=== PATIENT | male | born 2000 | race Caucasian/White ===

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

== ENCOUNTER → 2019-02-01 | Outpatient (REF) | payer OTHER ==
[~2019-02-01] MED LIST changes: +CEFU50TA PO
[2019-02-01 13:39] LABS: BASO % 0.3 % (0.0-1.0); EOS # 0.1 10^3/uL (0.0-0.50); HEMATOCRIT 44.9 % (42.0-52.0); HEMOGLOBIN 15.4 g/dl (13.5-17.5); LYMPH # 1.7 10^3/uL (1.5-6.5); LYMPH % 16.5 % (24.0-44.0); MEAN CORPUSCULAR HEMOGLOBIN 27.6 pg (27.0-33.0); MEAN CORPUSCULAR HGB CONC 34.3 g/dl (32.0-36.5); MEAN CORPUSCULAR VOLUME 80.5 fl (80.0-96.0); MONO # 0.3 10^3/uL (0.0-0.8); MONO % 3.3 % (0.0-5.0); NEUTROPHILS # 7.8 10^3/uL (1.8-7.7); NEUTROPHILS % 78.2 % (36.0-66.0); PLATELET COUNT, AUTOMATED 133 10^3/uL (150-450); RED BLOOD COUNT 5.58 10^6/uL (4.30-6.10)
== END ==
LOC: M LABDRAW1 11:43
PROVIDERS: ATTEND Family Medicine
DX: T17.908A Unspecified foreign body in respiratory tract, part unspecified causing other injury, initial encounter (principal)

== ENCOUNTER → 2019-02-19 | Outpatient (CLI) | payer OTHER | LOC: M LAB 13:55 | PROVIDERS: ATTEND Family Medicine | DX: M13.0 Polyarthritis, unspecified (principal) ==

== ENCOUNTER 2019-02-27 12:13 | Outpatient (RCR) | payer OTHER ==
--- NOTE | 2019-02-27 14:55 | NUR ---
Pt reports that after eating a few bites that he feels full and pain begins in the upper abdomen. Pt denies pain in the pharyngeal area before/during or after swallow but rather in the abdominal area. Pt admits to GERD but does not always take his omeprazole d/t neuro meds as advised by his doctor. Hx sig for: TAR Syndrome Asthma (as reported by Pt) Depression Chronic thrombocytopenia Scoliosis Vitamin D deficiency Delayed cough with puree soft sandwich, mixed consistency and thin liquid. However, there was no penetration or aspiration. There was no residue within the oral cavity or pharynx. D/T slight breath holds during normal swallow, particularly with consecutive drinks. It may be likely that cough is a result of asthma with extended or repeated breath holds. Avoid consecutive drinks. Avoid large bites of food that require consecutive swallows. Recommend: continue diet as tolerated Addendum: 02/27/19 at 1456 by SHANT ALLISON [facility] Amended: Links added.
--- NOTE | 2019-02-28 10:01 | REP ---
Cookie Swallow This procedure is performed by MARGARITO High, under the direct supervision of Dr. Sol. The procedure was performed with a Lyn Hansen from speech pathology present. 5 ml aliquots of thin, pudding, mixed fruit, sandwich, and cookies was administered with barium. No abnormalities for aspiration was appreciated during the exam. The detailed report of this examination will be provided by speech pathology. 2.0 minutes of fluoroscopy time was utilized for this procedure. Reviewed by MARGARITO Dawkins 02/27/2019 02:58 P Electronically Signed by Tanner Sol MD 02/28/2019 09:52 A
== END 2019-03-06 ==
LOC: M ST 12:13
PROVIDERS: ATTEND Family Medicine
DX: T17.908D Unspecified foreign body in respiratory tract, part unspecified causing other injury, subsequent encounter (principal)

== ENCOUNTER → 2019-03-08 | Outpatient (CLI) | payer OTHER ==
--- NOTE | 2019-03-09 03:53 | REP ---
Clinical: Acute flank pain. Technique: Real time ramirez scale and color evaluation using curved array transducer. Findings: Bilateral kidneys are normal in contour, size, echogenicity and reniform shape. No hydronephrosis, nephrolithiasis, cystic or renal mass lesion. Right kidney measures 8.8 x 4.5 x 3.6 cm. Left kidney measures 9.7 x 4.1 x 4.7 cm. Bladder is unremarkable although under distended and currently measures 5.7 x 5.3 x 1.8 cm. Prostate is normal in appearance and measures 2.5 x 3.0 x 2.7 cm (10.6 ml). Impression: Normal renal ultrasound. Electronically Signed by Thang Perales MD 03/09/2019 03:44 A
== END ==
LOC: M RAD 15:33
PROVIDERS: ATTEND Family Medicine
DX: R10.9 Unspecified abdominal pain (principal)

== ENCOUNTER → 2019-03-08 | Outpatient (CLI) | payer OTHER ==
[2019-03-08 17:36] LABS: BLOOD UREA NITROGEN 13 MG/DL (7-18); CALCIUM LEVEL 9.4 MG/DL (8.5-10.1); CARBON DIOXIDE LEVEL 25 MEQ/L (21-32); CHLORIDE LEVEL 109 MEQ/L (98-107); CREATININE FOR GFR 0.98 MG/DL (0.70-1.30); GLUCOSE, FASTING 87 MG/DL (70-100); POTASSIUM SERUM 4.4 MEQ/L (3.5-5.1); SODIUM LEVEL 139 MEQ/L (136-145)
== END ==
LOC: M LAB 15:58
PROVIDERS: ATTEND Family Medicine
DX: R10.9 Unspecified abdominal pain (principal)

== ENCOUNTER 2019-03-15 11:36 | Emergency (ER) | payer OTHER ==
[~2019-03-15] VITALS: Ht 154.9 cm; Wt 45.5 kg
[2019-03-15] MEDS ORDERED: CEFD1CAP8 (11:42)
[2019-03-15] MEDS ORDERED: ZYRTTAB8 PO (12:51)
[2019-03-15 12:52] VITALS: BP 95/57
[2019-03-15] MEDS ORDERED: ACETAMINOPHEN 325 MG TAB PO ONE (13:00)
== END 2019-03-15 12:57 | disposition home or self-care (01) ==
LOC: M ED 11:36
DX: H65.02 Acute serous otitis media, left ear (principal); J30.89 Other allergic rhinitis; K21.9 Gastro-esophageal reflux disease without esophagitis; Z88.0 Allergy status to penicillin

== ENCOUNTER → 2019-04-25 | Outpatient (CLI) | payer OTHER ==
[~2019-04-25] MED LIST changes: +CEFD1CAP8; +ZYRTTAB8 PO
--- NOTE | 2019-04-26 13:12 | REP ---
RIGHT UPPER QUADRANT SONOGRAPHY: HISTORY: Epigastric pain. COMPARISON: CT study November 18, 2018. TECHNIQUE: The study was performed as a the right upper quadrant sonography as ordered. However, additional history provided requested evaluation of spleen and rule out ascites. We attempted to recall the patient to accomplish this; and he returned on April 26 2019 for left abdominal scanning. SONOGRAPHIC FINDINGS: Scanning through the right upper quadrant demonstrates a normal sized thin-walled gallbladder without evidence of stone or polyp. Common bile duct is normal measuring 0.3 cm in greatest diameter. No focal liver lesion is seen. The liver is not felt to be enlarged. No pancreatic abnormality is seen. There is no evidence of ascites in the right upper quadrant. No right renal abnormality is noted. The right kidney measures 8.4 x 4.7 x 3.1 cm. Left upper quadrant scanning demonstrates normal sized homogeneous spleen with greatest diameter 9.7 cm. Left kidney is unremarkable as well measuring 9.44 0.5 x 4.6 cm. No ascites seen on the left or in the lower quadrants. IMPRESSION: Negative right upper quadrant sonogram. Negative left upper quadrant and a ascites survey sonography. Electronically Signed by Scott Jacome MD 04/26/2019 02:21 P
== END ==
LOC: M RAD 09:24
PROVIDERS: ATTEND Internal Medicine Gastroenterology
DX: R10.13 Epigastric pain (principal); R10.11 Right upper quadrant pain; F10.10 Alcohol abuse, uncomplicated

== ENCOUNTER → 2019-05-09 | Outpatient (CLI) | payer OTHER ==
[~2019-05-09] MED LIST changes: -DULO1CAP; +DULO1CAP4
[2019-05-09 13:34] LABS: BASO % 0.5 % (0.0-1.0); EOS # 0.1 10^3/uL (0.0-0.50); EOS % 1.1 % (0.0-3.0); HEMATOCRIT 47.7 % (42.0-52.0); HEMOGLOBIN 16.5 g/dl (13.5-17.5); LYMPH # 1.9 10^3/uL (1.5-6.5); LYMPH % 21.6 % (24.0-44.0); MEAN CORPUSCULAR HEMOGLOBIN 27.9 pg (27.0-33.0); MEAN CORPUSCULAR HGB CONC 34.6 g/dl (32.0-36.5); MEAN CORPUSCULAR VOLUME 80.6 fl (80.0-96.0); MONO # 0.3 10^3/uL (0.0-0.8); MONO % 2.8 % (0.0-5.0); NEUTROPHILS # 6.5 10^3/uL (1.8-7.7); NEUTROPHILS % 73.4 % (36.0-66.0); PLATELET COUNT, AUTOMATED 127 10^3/uL (150-450); RED BLOOD COUNT 5.92 10^6/uL (4.30-6.10); WHITE BLOOD COUNT 8.8 10^3/uL (4.0-10.0)
[2019-05-09 14:08] LABS: ALBUMIN 4.7 GM/DL (3.2-5.2); BILIRUBIN,DIRECT 0.2 MG/DL (0.0-0.2); BILIRUBIN,TOTAL 0.7 MG/DL (0.2-1.0); TOTAL PROTEIN 7.8 GM/DL (6.4-8.2)
[2019-05-12 00:08] LABS: IGASUB2 92.8 mg/dL (73.2-301.2); IgA SERUM (part of Subclasses) 126 mg/dL (90-386); TISSUE TRANSGLUTAMINASE IgA <2 U/mL (0-3); UNITSIGA FOR GLIADIN IGA 2 units (0-19); UNITSIGG FOR GLIADIN IGG 2 units (0-19)
== END ==
LOC: M LAB 12:29
PROVIDERS: ATTEND Internal Medicine Gastroenterology
DX: R10.13 Epigastric pain (principal)

== ENCOUNTER 2019-05-16 12:39 | Emergency (ER) | payer OTHER ==
[~2019-05-16] VITALS: Ht 154.9 cm; Wt 43.2 kg
[2019-05-16 14:27] LABS: BASO % 0.3 % (0.0-1.0); EOS % 0.4 % (0.0-3.0); HEMATOCRIT 44.2 % (42.0-52.0); HEMOGLOBIN 15.3 g/dl (13.5-17.5); LYMPH % 11.5 % (24.0-44.0); MEAN CORPUSCULAR HEMOGLOBIN 27.9 pg (27.0-33.0); MEAN CORPUSCULAR HGB CONC 34.6 g/dl (32.0-36.5); MEAN CORPUSCULAR VOLUME 80.7 fl (80.0-96.0); MONO # 0.5 10^3/uL (0.0-0.8); MONO % 5.3 % (0.0-5.0); NEUTROPHILS # 7.3 10^3/uL (1.8-7.7); NEUTROPHILS % 81.9 % (36.0-66.0); RED BLOOD COUNT 5.48 10^6/uL (4.30-6.10); WHITE BLOOD COUNT 8.9 10^3/uL (4.0-10.0)
[2019-05-16 14:28] LABS: PLATELET COUNT, AUTOMATED 90 10^3/uL (150-450)
--- NOTE | 2019-05-16 14:29 | REP ---
CHEST: Two views. There is no evidence of acute infiltrate. No pleural effusion is seen. The heart is normal in size. The mediastinal silhouette is unremarkable. The visualized osseous structures are intact. IMPRESSION: No acute pulmonary disease. Electronically Signed by Tanner Sol MD 05/18/2019 12:34 P
[2019-05-16 14:50] LABS: ALBUMIN 4.6 GM/DL (3.2-5.2); ALT/SGPT 14 U/L (12-78); BILIRUBIN,DIRECT 0.3 MG/DL (0.0-0.2); BILIRUBIN,TOTAL 1.4 MG/DL (0.2-1.0); BLOOD UREA NITROGEN 16 MG/DL (7-18); CALCIUM LEVEL 9.1 MG/DL (8.5-10.1); CARBON DIOXIDE LEVEL 25 MEQ/L (21-32); CHLORIDE LEVEL 108 MEQ/L (98-107); CREATININE FOR GFR 1.12 MG/DL (0.70-1.30); GLUCOSE, FASTING 85 MG/DL (70-100); LIPASE 43 U/L (73-393); SODIUM LEVEL 139 MEQ/L (136-145)
[2019-05-16 17:06] LABS: INFLUENZA A AMPLIFICATION NEGATIVE (NEGATIVE); INFLUENZA B AMPLIFICATION NEGATIVE (NEGATIVE)
[2019-05-16] MEDS ORDERED: ACETAMINOPHEN TAB 650MG DOSE (2X325MG) PO ONE (17:30)
--- NOTE | 2019-05-16 18:26 | REPVR ---
EXAM: US Abdomen Limited, Right Upper Quadrant EXAM DATE/TIME: 05/16/2019 5:31 PM CLINICAL HISTORY: 18 years old, male; Abdominal pain; Acute; Additional info: Ruq ttp, elevated bili levels, pls view liver/gb TECHNIQUE: Imaging protocol: Real-time ultrasound of the abdomen with image documentation. Examination was focused on the right upper quadrant. COMPARISON: RENAL US 03/08/2019 3:45 PM FINDINGS: Pancreas is only partially visualized due to bowel shadowing. No overt abnormailty. Liver is homogeneous in echotexture, with no focal lesion. Gallbladder is anechoic. No stone, mural edema or pericholecystic fluid. Common bile duct measures 1.2 mm in diameter. Right kidney measures 9.1 cm in long axis. Right kidney appears normal. No free fluid. IMPRESSION: Unremarkable sonogram of the right upper quadrant. Electronically signed by: Mane Dimas On 05/16/2019 18:25:59 PM
[2019-05-16 19:11] VITALS: BP 113/68
[2019-05-16 19:11] LABS: MONO REFLEX EBV COMP NEGATIVE (NEGATIVE)
--- NOTE | 2019-05-17 07:39 | ECGEPIP ---
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
[2019-05-19 00:06] LABS: EBV AB TO NUCLEAR ANTIGEN <18.0 U/mL (0.0-17.9); EBV VIRAL CAPSID AG IgG >600.0 U/mL (0.0-17.9); EBV VIRAL CAPSID AG IgM <36.0 U/mL (0.0-35.9)
== END 2019-05-16 19:18 | disposition home or self-care (01) ==
LOC: M ED 12:39
DX: D69.6 Thrombocytopenia, unspecified (principal); B34.9 Viral infection, unspecified; R00.0 Tachycardia, unspecified; R53.81 Other malaise; R53.83 Other fatigue; K21.9 Gastro-esophageal reflux disease without esophagitis; F41.9 Anxiety disorder, unspecified; F32.9 Major depressive disorder, single episode, unspecified; Q87.2 Congenital malformation syndromes predominantly involving limbs; Z88.0 Allergy status to penicillin; Z79.899 Other long term (current) drug therapy

== ENCOUNTER 2019-05-24 09:38 | Emergency (ER) | payer OTHER ==
[~2019-05-24] VITALS: Ht 154.9 cm; Wt 40.0 kg
[2019-05-24] MEDS ORDERED: ALBU83IN (09:46)
[2019-05-24] MEDS ORDERED: FLUT1INH2 (09:46)
[2019-05-24] MEDS ORDERED: CEFU1TAB22 (09:46)
[2019-05-24] MEDS ORDERED: BENZ200C70 (09:46)
[2019-05-24] MEDS ORDERED: PRED20TA (09:46)
[2019-05-24] MEDS ORDERED: ONDANSETRON 4MG/2ML VIAL (J2405) IV ONE (10:30)
[2019-05-24] MEDS ORDERED: KETOROLAC 30 MG/ML VIAL (J1885) IV ONE (10:30)
[2019-05-24] MEDS ORDERED: NS 500 ML IV ONE (10:30)
[2019-05-24] MEDS: GASTROGRAFIN SOLUTION 30ML PO SCH ×2 (11:28→11:30)
--- NOTE | 2019-05-24 11:31 | REP ---
CHEST, TWO VIEWS: There is no evidence of acute infiltrate. No pleural effusion is seen. The heart is normal in size. The mediastinal silhouette is unremarkable. The visualized osseous structures are intact. IMPRESSION: No acute pulmonary disease. Electronically Signed by Tanner Sol MD 05/27/2019 07:07 P
[2019-05-24 12:37] LABS: BASO # 0.1 10^3/uL (0.0-0.2); BASO % 0.6 % (0.0-1.0); EOS # 0.1 10^3/uL (0.0-0.50); EOS % 1.1 % (0.0-3.0); HEMATOCRIT 44.3 % (42.0-52.0); HEMOGLOBIN 15.5 g/dl (13.5-17.5); LYMPH # 2.3 10^3/uL (1.5-6.5); LYMPH % 26.1 % (24.0-44.0); MEAN CORPUSCULAR HEMOGLOBIN 27.7 pg (27.0-33.0); MEAN CORPUSCULAR VOLUME 79.2 fl (80.0-96.0); MONO # 0.5 10^3/uL (0.0-0.8); NEUTROPHILS # 5.7 10^3/uL (1.8-7.7); NEUTROPHILS % 64.2 % (36.0-66.0); PLATELET COUNT, AUTOMATED 131 10^3/uL (150-450); RED BLOOD COUNT 5.59 10^6/uL (4.30-6.10); WHITE BLOOD COUNT 8.9 10^3/uL (4.0-10.0)
[2019-05-24 13:05] LABS: ALBUMIN 4.5 GM/DL (3.2-5.2); ALT/SGPT 28 U/L (12-78); BILIRUBIN,DIRECT 0.2 MG/DL (0.0-0.2); BILIRUBIN,TOTAL 0.7 MG/DL (0.2-1.0); BLOOD UREA NITROGEN 12 MG/DL (7-18); CARBON DIOXIDE LEVEL 24 MEQ/L (21-32); CHLORIDE LEVEL 111 MEQ/L (98-107); CREATININE FOR GFR 1.04 MG/DL (0.70-1.30); GLUCOSE, FASTING 86 MG/DL (70-100); LIPASE 68 U/L (73-393); POTASSIUM SERUM 3.5 MEQ/L (3.5-5.1); SODIUM LEVEL 143 MEQ/L (136-145); TOTAL PROTEIN 7.4 GM/DL (6.4-8.2)
[2019-05-24] MEDS ORDERED: ISOVUE-370 76% 100ML VIAL (Q9967) As Ordered ONE (13:20)
--- NOTE | 2019-05-24 14:22 | REP ---
CT ABDOMEN AND PELVIS WITHOUT IV AND WITH ORAL CONTRAST: Axial CT abdomen and pelvis performed following administration of oral contrast. IV contrast was attempted to be administered but the patient only received a small amount of IV contrast and the IV failed. Re-injection was not attempted. Only a very small amount of intravenous contrast is administered with enhancement of both kidneys and excretion of contrast into both ureters. Sagittal and coronal reconstruction images are performed. Visualized lung bases are clear. Liver, spleen, adrenals, pancreas and kidneys are grossly unremarkable. There is no abdominal aortic aneurysm. There is no adenopathy. There is no free air. I see no bowel wall thickening. There is no evidence of appendicitis. There is trace free fluid in the pelvis, which is of uncertain significance. Urinary bladder is unremarkable. Old right pelvic fracture is noted. IMPRESSION: No evidence of appendicitis. No free air. No other evidence of bowel thickening. Trace free fluid in the pelvis is of uncertain significance. Electronically Signed by Tanner Sol MD 05/27/2019 07:16 P
[2019-05-24 15:36] VITALS: BP 133/80
== END 2019-05-24 15:36 | disposition home or self-care (01) ==
LOC: M ED 09:38
DX: R10.9 Unspecified abdominal pain (principal); R50.9 Fever, unspecified; K92.1 Melena; R19.7 Diarrhea, unspecified; J45.909 Unspecified asthma, uncomplicated; Q87.2 Congenital malformation syndromes predominantly involving limbs; F94.1 Reactive attachment disorder of childhood; K21.9 Gastro-esophageal reflux disease without esophagitis; F33.9 Major depressive disorder, recurrent, unspecified; Z79.899 Other long term (current) drug therapy; Z88.0 Allergy status to penicillin
CPT/HCPCS: 71046; 74176; 80047; 80048; 80076; 81001; 83690; 85025; 96374; 96375; 99284; J1885; J2405; Q9963; Q9967

== ENCOUNTER → 2019-07-26 | Outpatient (CLI) | payer OTHER ==
[~2019-07-26] MED LIST changes: +ALBU83IN; +BENZ200C70; +CEFU1TAB22; +FLUT1INH2; +PRED20TA
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
== END ==
LOC: M RAD 13:48
PROVIDERS: ATTEND Family Medicine
DX: M54.2 Cervicalgia (principal)

== ENCOUNTER → 2019-08-22 | Outpatient (CLI) | payer OTHER ==
--- NOTE | 2019-08-22 13:58 | REP ---
MRI lumbar spine: Tenth [id number]. Indication: Low back pain. Comparison: None. Technique: Multiplanar short and long TR sequences of the lumbar spine were obtained without IV gadolinium contrast. Findings: Lumbar vertebral body alignment is anatomic. There is no significant desiccation of the intervertebral discs. Very minimal levoscoliosis with the convexity centered at L3 is present which may be positional. The paraspinal soft tissues are unremarkable. There is no disc herniation or significant spinal canal / neural foraminal narrowing throughout. Impression: Unremarkable MRI of the lumbar spine with the exception of minimal scoliosis as described. Electronically Signed by Olaf Morgan DO 08/22/2019 01:49 P
== END ==
LOC: M RAD 12:22
PROVIDERS: ATTEND Family Medicine
DX: M54.5 Low back pain (principal)

== ENCOUNTER 2019-09-14 14:06 | Emergency (ER) | payer OTHER ==
[~2019-09-14] VITALS: Ht 154.9 cm; Wt 40.9 kg
[2019-09-14] MEDS ORDERED: MORPHINE 2 MG/ML 1ML VIAL (J2270) IV ONE (14:30)
[2019-09-14 15:15] LABS: HEMATOCRIT 43.7 % (42.0-52.0); HEMOGLOBIN 15.1 g/dl (13.5-17.5); MEAN CORPUSCULAR HEMOGLOBIN 26.9 pg (27.0-33.0); MEAN CORPUSCULAR HGB CONC 34.6 g/dl (32.0-36.5); MEAN CORPUSCULAR VOLUME 77.9 fl (80.0-96.0); PLATELET COUNT, AUTOMATED 108 10^3/uL (150-450); RED BLOOD COUNT 5.61 10^6/uL (4.30-6.10); WHITE BLOOD COUNT 8.3 10^3/uL (4.0-10.0)
[2019-09-14] MEDS ORDERED: ISOVUE-370 76% 100ML VIAL (Q9967) As Ordered ONE (15:17)
[2019-09-14 15:31] LABS: ALBUMIN 4.6 GM/DL (3.2-5.2); BILIRUBIN,DIRECT 0.2 MG/DL (0.0-0.2); BILIRUBIN,TOTAL 0.9 MG/DL (0.2-1.0); TOTAL PROTEIN 7.7 GM/DL (6.4-8.2)
--- NOTE | 2019-09-14 16:12 | REP ---
CT of the chest with IV contrast: There are no comparisons. There is no pneumothorax, hemothorax or pulmonary contusion. There is no thoracic aorta and dissection or periaortic hematoma. There is no mediastinal hematoma. There is no vertebral or sternal fracture. No rib fractures are identified. No clavicle or scapular fracture. There is no focal or diffuse pleural thickening. Impression: Essentially negative CT study of the chest. Electronically Signed by Tanner Villa MD 09/14/2019 04:04 P
--- NOTE | 2019-09-14 16:16 | REP ---
CT of the abdomen and pelvis with IV contrast, without bowel contrast: The study is performed contiguous with the chest CT. Comparison is 05/24/2019. The hepatic and splenic parenchyma are are homogeneous. The gallbladder and pancreas are unremarkable. There is no pneumoperitoneum. There is no hemoperitoneum. The abdominal aorta is unremarkable. There is no periaortic hematoma. The adrenals are unremarkable. The kidneys are unremarkable. The bowel and mesentery are unremarkable. Pelvis: The bladder is unremarkable. There is no hemoperitoneum. There is an old healed fracture of the right iliac wing inferiorly, unchanged. Vertebral body heights, interspacing alignment are normal. Impression: No pneumoperitoneum , hemoperitoneum or solid organ injury. No acute fracture. There is an old healed fracture of the right iliac wing inferiorly. Electronically Signed by Tanner Villa MD 09/14/2019 04:08 P
[2019-09-14 16:47] VITALS: BP 124/72
== END 2019-09-14 16:51 | disposition home or self-care (01) ==
LOC: EDBD 14:06 → M ED 14:06
DX: M54.9 Dorsalgia, unspecified (principal); R07.9 Chest pain, unspecified; V43.62XA Car passenger injured in collision with other type car in traffic accident, initial encounter; Y92.410 Unspecified street and highway as the place of occurrence of the external cause; Z79.899 Other long term (current) drug therapy
CPT/HCPCS: 71260; 74177; 80047; 80076; 83690; 85027; 96374; 99284; J2270; Q9967

== ENCOUNTER → 2019-12-18 | Outpatient (CLI) | payer OTHER ==
[~2019-12-18] MED LIST changes: +AZIT-12 PO; +ENSULIQ19 PO; +ONDA-83 PO; +PANT40TA3 PO
[2019-12-18 14:09] LABS: BASO % 0.4 % (0.0-1.0); EOS # 0.2 10^3/uL (0.0-0.5); EOS % 2.2 % (0.0-3.0); HEMATOCRIT 43.8 % (42.0-52.0); LYMPH % 30.5 % (24.0-44.0); MEAN CORPUSCULAR HEMOGLOBIN 27.2 pg (27.0-33.0); MEAN CORPUSCULAR HGB CONC 34.2 g/dl (32.0-36.5); MEAN CORPUSCULAR VOLUME 79.5 fl (80.0-96.0); MONO # 0.3 10^3/uL (0.0-0.8); MONO % 3.7 % (0.0-5.0); NEUTROPHILS # 4.1 10^3/uL (1.5-8.5); NEUTROPHILS % 61.9 % (36.0-66.0); RED BLOOD COUNT 5.51 10^6/uL (4.30-6.10); WHITE BLOOD COUNT 6.7 10^3/uL (4.0-10.0)
[2019-12-18 14:15] LABS: PLATELET COUNT, AUTOMATED 99 10^3/uL (150-450)
[2019-12-18 14:55] LABS: FREE T4 1.02 NG/DL (0.78-1.33); PERCENT SATURATION 18.8 % (19.7-50.0); THYROID STIMULATING HORMONE 1.3 uIU/ML (0.463-3.98)
== END ==
LOC: M LAB 12:52
PROVIDERS: ATTEND Internal Medicine Hematology & Oncology
DX: D69.6 Thrombocytopenia, unspecified (principal)

== ENCOUNTER → 2019-12-18 | Outpatient (CLI) | payer OTHER ==
[2019-12-18 14:09] LABS: BASO # 0.1 10^3/uL (0.0-0.2); BASO % 0.9 % (0.0-1.0); EOS # 0.1 10^3/uL (0.0-0.5); EOS % 1.9 % (0.0-3.0); HEMATOCRIT 44.7 % (42.0-52.0); LYMPH # 2.1 10^3/uL (1.5-5.0); LYMPH % 30.8 % (24.0-44.0); MEAN CORPUSCULAR HEMOGLOBIN 26.9 pg (27.0-33.0); MEAN CORPUSCULAR HGB CONC 33.6 g/dl (32.0-36.5); MEAN CORPUSCULAR VOLUME 80.1 fl (80.0-96.0); MONO # 0.3 10^3/uL (0.0-0.8); MONO % 3.7 % (0.0-5.0); NEUTROPHILS # 4.1 10^3/uL (1.5-8.5); NEUTROPHILS % 60.6 % (36.0-66.0); RED BLOOD COUNT 5.58 10^6/uL (4.30-6.10); WHITE BLOOD COUNT 6.8 10^3/uL (4.0-10.0)
[2019-12-18 14:16] LABS: PLATELET COUNT, AUTOMATED 96 10^3/uL (150-450)
== END ==
LOC: M LAB 12:49
PROVIDERS: ATTEND Family Medicine
DX: J20.9 Acute bronchitis, unspecified (principal)

== ENCOUNTER 2020-01-19 11:01 | Emergency (ER) | payer OTHER ==
[~2020-01-19] VITALS: Ht 154.9 cm; Wt 42.8 kg
[2020-01-19 11:52] LABS: BASO % 0.4 % (0.0-1.0); EOS # 0.1 10^3/uL (0.0-0.5); EOS % 1.5 % (0.0-3.0); HEMATOCRIT 46.1 % (42.0-52.0); HEMOGLOBIN 15.9 g/dl (13.5-17.5); LYMPH # 3.2 10^3/uL (1.5-5.0); LYMPH % 33.5 % (24.0-44.0); MEAN CORPUSCULAR HEMOGLOBIN 27.2 pg (27.0-33.0); MEAN CORPUSCULAR HGB CONC 34.5 g/dl (32.0-36.5); MEAN CORPUSCULAR VOLUME 78.8 fl (80.0-96.0); MONO # 0.4 10^3/uL (0.0-0.8); MONO % 3.9 % (0.0-5.0); NEUTROPHILS # 5.6 10^3/uL (1.5-8.5); NEUTROPHILS % 59.8 % (36.0-66.0); PLATELET COUNT, AUTOMATED 132 10^3/uL (150-450); RED BLOOD COUNT 5.85 10^6/uL (4.30-6.10); WHITE BLOOD COUNT 9.4 10^3/uL (4.0-10.0)
[2020-01-19 12:08] LABS: INFLUENZA A AMPLIFICATION NEGATIVE (NEGATIVE); INFLUENZA B AMPLIFICATION NEGATIVE (NEGATIVE)
[2020-01-19 12:09] LABS: ALBUMIN 5.2 GM/DL (3.2-5.2); ALT/SGPT 14 U/L (12-78); BILIRUBIN,DIRECT 0.2 MG/DL (0.0-0.2); BILIRUBIN,TOTAL 1.3 MG/DL (0.2-1.0); BLOOD UREA NITROGEN 13 MG/DL (7-18); CALCIUM LEVEL 9.6 MG/DL (8.5-10.1); CARBON DIOXIDE LEVEL 23 MEQ/L (21-32); CHLORIDE LEVEL 108 MEQ/L (98-107); CREATININE FOR GFR 1.12 MG/DL (0.70-1.30); GLUCOSE, FASTING 123 MG/DL (70-100); LIPASE 35 U/L (73-393); POTASSIUM SERUM 4.1 MEQ/L (3.5-5.1); SODIUM LEVEL 140 MEQ/L (136-145); TOTAL PROTEIN 8.5 GM/DL (6.4-8.2)
[2020-01-19] MEDS ORDERED: NS 500 ML IV ONE (12:30)
[2020-01-19] MEDS ORDERED: ONDANSETRON 4MG/2ML VIAL (J2405) IV ONE (12:30)
[2020-01-19] MEDS ORDERED: ACETAMINOPHEN TAB 650MG DOSE (2X325MG) PO ONE (12:30)
[2020-01-19 13:55] LABS: CK-MB VALUE MASS < 1.0 NG/ML (<3.6); CPK CREATINE PHOSPHOKINASE 173 U/L (39-308); MB/CK RELATIVE INDEX 0.58 (< OR =4); TROPONIN I < 0.02 NG/ML (< 0.10)
[2020-01-19 14:36] LABS: FREE T4 1.24 NG/DL (0.78-1.33); THYROID STIMULATING HORMONE 0.919 uIU/ML (0.463-3.98)
[2020-01-19] MEDS ORDERED: ONDA4TAB6 PO (15:01)
[2020-01-19 15:11] VITALS: BP 120/75
--- NOTE | 2020-01-19 17:34 | ECGEPIP ---
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
--- NOTE | 2020-01-20 08:14 | REP ---
REASON: Abdominal pain. COMPARISON: Chest 05/24/2019. ABDOMINAL SERIES: FINDINGS: Supine and upright views of the abdomen show the intestinal gas pattern to be nonspecific. Gas and stool is seen throughout the colon within the rectosigmoid region. The organ silhouettes insofar as delineated appear unremarkable. No abdominal calcific densities are seen within the abdomen or pelvis. The accompanying single frontal view of the chest shows no free subdiaphragmatic air, cardiomegaly, infiltrates, or effusions. There is no change in the frontal view of the chest. There is no change in the osseous structures. There are chronic changes seen involving the right hemipelvis, stable from 12/26/2016. IMPRESSION: Nonspecific intestinal gas pattern. Unreviewed
== END 2020-01-19 15:14 | disposition home or self-care (01) ==
LOC: M ED 11:01
DX: K52.9 Noninfective gastroenteritis and colitis, unspecified (principal); K21.9 Gastro-esophageal reflux disease without esophagitis; J45.909 Unspecified asthma, uncomplicated; Z87.820 Personal history of traumatic brain injury; Z88.0 Allergy status to penicillin; Z79.899 Other long term (current) drug therapy
CPT/HCPCS: 74021; 80048; 80076; 81001; 82550; 82553; 83690; 84439; 84443; 85025; 87502; 93005; 96361; 96374; 99284; J2405

== ENCOUNTER → 2022-02-04 | Outpatient (CLI) | payer OTHER ==
[~2022-02-04] MED LIST changes: -CEFD1CAP8; +CEFD300C41; +GABA-282; -GABA-843; +ONDA4TAB6 PO; +PANT40TA29 PO; -PANT40TA3 PO
== END ==
LOC: M RAD 14:13
PROVIDERS: ATTEND Internal Medicine Hematology
DX: Q87.2 Congenital malformation syndromes predominantly involving limbs (principal)

== ENCOUNTER → 2022-02-17 | Outpatient (CLI) | payer OTHER ==
[2022-02-17 13:54] LABS: BASO % 0.5 % (0.0-1.0); EOS # 0.1 10^3/uL (0.0-0.5); HEMATOCRIT 42.4 % (42.0-52.0); HEMOGLOBIN 14.4 g/dl (13.5-17.5); LYMPH # 1.7 10^3/uL (1.5-5.0); LYMPH % 28.4 % (24.0-44.0); MEAN CORPUSCULAR HEMOGLOBIN 27.6 pg (27.0-33.0); MEAN CORPUSCULAR VOLUME 81.4 fl (80.0-96.0); MONO # 0.3 10^3/uL (0.0-0.8); MONO % 4.7 % (2.0-8.0); NEUTROPHILS # 3.8 10^3/uL (1.5-8.5); NEUTROPHILS % 63.7 % (36.0-66.0); RED BLOOD COUNT 5.21 10^6/uL (4.30-6.10)
[2022-02-17 14:27] LABS: ALBUMIN 4.4 GM/DL (3.2-5.2); ALT/SGPT 16 U/L (12-78); AMYLASE 48 U/L (25-115); BILIRUBIN,TOTAL 0.7 MG/DL (0.2-1.0); BLOOD UREA NITROGEN 14 MG/DL (7-18); CALCIUM LEVEL 9.2 MG/DL (8.5-10.1); CARBON DIOXIDE LEVEL 25 MEQ/L (21-32); CHLORIDE LEVEL 111 MEQ/L (98-107); FERRITIN 42 NG/ML (26-388); GLOMERULAR FILTRATION RATE > 60.0 (>60); GLUCOSE, FASTING 115 MG/DL (70-100); LIPASE 73 U/L (73-393); SODIUM LEVEL 140 MEQ/L (136-145); TOTAL 25(OH) VITAMIN D 10.6 NG/ML (30.0-100.0); TOTAL PROTEIN 6.9 GM/DL (6.4-8.2)
[2022-02-17 14:30] LABS: PLATELET COUNT, AUTOMATED 86 10^3/uL (150-450)
[2022-02-17 14:39] LABS: VITAMIN B12 LEVEL 394 PG/ML (247-911)
== END ==
LOC: M PLALAB 08:49
PROVIDERS: ATTEND Internal Medicine Hematology
DX: Q87.2 Congenital malformation syndromes predominantly involving limbs (principal)